=== PATIENT | male | born 1950 | race Caucasian/White ===

== ENCOUNTER → 2017-02-07 | Outpatient (CLI) | payer OTHER ==
[~2017-02-07] MED LIST: IOPAMIDOL (ISOVUE-300) 100 ML BTL IV ONE
== END ==
LOC: FIMAGING 07:40
PROVIDERS: ATTEND Family Medicine
DX: E27.9 Disorder of adrenal gland, unspecified (principal)
CPT/HCPCS: Q9967

== ENCOUNTER → 2018-05-12 | Outpatient (CLI) | payer OTHER | LOC: FIMAGING 08:16 | PROVIDERS: ATTEND Family Medicine | DX: D35.01 Benign neoplasm of right adrenal gland (principal) ==

== ENCOUNTER 2018-05-29 07:59 | Inpatient (IN) | payer OTHER ==
[2018-05-29] MEDS ORDERED: ETOMIDATE 40 MG/20 ML INJ IVP ONE (08:01)
[2018-05-29] MEDS ORDERED: SUCCINYLCHOLINE CHLORIDE 200 MG/10 ML VIAL IVP ONE (08:02)
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
[2018-05-29] MEDS ORDERED: PROPOFOL 200 MG/20 ML VIAL IVP ONE ×3 (08:11→08:27)
[2018-05-29 08:23] LABS: PLATELET COUNT 250 10^3/uL (150-400)
[2018-05-29] MEDS ORDERED: PROPOFOL/EMULSION 100 ML IV SCH (08:30)
[2018-05-29] MEDS ORDERED: ROCURONIUM 100 MG/10 ML VIAL ONE (08:37)
[2018-05-29] MEDS ORDERED: PROPOFOL 200 MG/20 ML VIAL ONE (08:38)
[2018-05-29] MEDS ORDERED: fentaNYL 100 MCG/2 ML INJ ONE (08:38)
[2018-05-29] MEDS ORDERED: PHENYLEPHRINE HCL 100 MCG/ML SYR ONE ×2 (08:39→09:41)
[2018-05-29] MEDS ORDERED: MANNITOL 20% 50 GM/250 ML BAG IV ONE (08:40)
[2018-05-29] MEDS ORDERED: levETIRAcetam 1000MG/NACL 100 ML IV ONE ×2 (08:41→16:15)
[2018-05-29] MEDS ORDERED: TRANEXAMIC ACID 1,000 MG/10 ML VIAL ONE (08:43)
[2018-05-29] MEDS ORDERED: ceFAZolin 2 GM/DEXTROSE 100 ML IV ONE ×2 (08:46→09:00)
[2018-05-29] MEDS ORDERED: TRANEXAMIC ACID 1,000 MG/10 ML VIAL IV ONE (08:46)
[2018-05-29] MEDS ORDERED: TRANEXAMIC ACID 1,000 MG in NS 100 ML IV ONE (08:48)
[2018-05-29] MEDS ORDERED: BACITRACIN ZINC 14.2 GM OINTTUBE TP ONE ×2 (08:51→11:47)
[2018-05-29] MEDS ORDERED: GENTAMICIN SULFATE 80 MG/2 ML VIAL ONE (08:51)
[2018-05-29] MEDS ORDERED: HYDROGEN PEROXIDE 236 ML BOTTLE TP ONE (08:51)
[2018-05-29] MEDS ORDERED: BUPIVACAINE 0.25% 30 ML SDV ONE (08:58)
[2018-05-29] MEDS ORDERED: EPINEPHrine 1 MG/ML INJ ONE (08:58)
[2018-05-29] MEDS ORDERED: PHENYLEPHRINE 10 MG/ML SDV ONE (09:41)
[2018-05-29 09:55] LABS: INR 1.15 (0.83-1.16); PROTIME(PATIENT) 14.9 SEC (12.0-15.0)
--- NOTE | 2018-05-29 10:11 | PDANEPAE ---
ANE History of Present Illness intracranial hemorrhage ANE Past Medical History Past Medical History: Pt's medical history is unknown ANE Review of Systems Review of Systems: ANE Labs/Vital Signs - Labs Result Diagrams: 05/29/18 09:33 05/29/18 08:00 - Vital Signs Heart Rate: 50 Respiratory Rate: 16 O2 Sat (%): 100 Weight: 78 kg ANE Physical Exam - Airway Neck exam: C-collar in place Mallampati Score: Unable to assesss ANE Anesthesia Plan Anesthesia Plan: general endotracheal anesthesia Lines/Monitors: arterial line, central line Urgent/Emergent Case: Kamilahs eval completed preop but documented later for safe timely pt care
[2018-05-29] MEDS ORDERED: ROCURONIUM 50 MG/5 ML VIAL ONE ×3 (10:14→11:51)
[2018-05-29] MEDS ORDERED: GLYCOPYRROLATE 0.2 MG/1 ML VIAL ONE (10:22)
[2018-05-29] MEDS ORDERED: ALBUMIN 5% 250 ML BOTTLE IV ONE (10:24)
[2018-05-29] MEDS ORDERED: POLYETHYLENE GLYCOL 3350 17 GM PKT PO PRN (12:11)
[2018-05-29] MEDS ORDERED: ACETAMINOPHEN 325 MG TAB PO PRN (12:11)
[2018-05-29] MEDS ORDERED: ONDANSETRON DISINTEGRATING 4 MG TAB PO PRN (12:11)
[2018-05-29] MEDS ORDERED: LACTULOSE 20 GM/30 ML UDCUP PO PRN (12:11)
[2018-05-29] MEDS ORDERED: MAGNESIUM HYDROXIDE 30 ML UDCUP PO PRN (12:11)
[2018-05-29] MEDS ORDERED: NALOXONE HCL 0.4 MG/ML INJ IVP PRN (12:50)
--- NOTE | 2018-05-29 12:50 | POSTANESTH ---
Post Anesthetic Evaluation Cardiovascular Status: Normal, Stable Respiratory Status: Other, See Comment (STABLE ON VENT) Level of Consciousness/Mental Status: Other, See Comment (SEDATED WITH PROPOFOL) Pain Control: Adequate, Prn Tx Ordered Nausea/Vomiting Control: Adequate, Prn Tx Ordered Complications Possibly Related to Anesthesia: None Noted
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
[2018-05-29] MEDS ORDERED: DOPamine/DEXTROSE 400 MG/250 ML BAG IV ONE (13:27)
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
[2018-05-29] MEDS ORDERED: NOREPINEPHRINE BITARTRATE 4 MG in D5W 500 ML IV SCH (13:30)
[2018-05-29] MEDS ORDERED: NS 1,000 ML IV ONE (13:43)
[2018-05-29] MEDS: niCARdipine/NACL 200 ML IV PRN (14:34)
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
[2018-05-29] MEDS: fentaNYL/NACL 100 ML IV SCH (15:43)
[2018-05-29] MEDS: MIDAZOLAM HCL 50 MG in NS 50 ML IV SCH (16:19)
[2018-05-29] MEDS ORDERED: IOPAMIDOL (ISOVUE 370) 100 ML BTL IV ONE (16:51)
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
[2018-05-29] MEDS ORDERED: levETIRAcetam 750 MG in NS 100 ML IV SCH (21:00)
[2018-05-29] MEDS: FAMOTIDINE 20 MG/NACL 50 ML IV SCH (21:07)
[2018-05-29] MEDS: levETIRAcetam 1000MG/NACL 100 ML IV SCH (21:07)
[2018-05-29] MEDS: SENNOSIDES/DOCUSATE SODIUM TAB PO SCH (22:00)
[2018-05-29] MEDS: CHLORHEXIDINE GLUCONATE 15 ML UDL PO SCH (22:00)
[2018-05-30] MEDS: ACETAMINOPHEN 650 MG SUPP PR PRN ×2 (01:42→14:32)
[2018-05-30 04:23] LABS: PLATELET COUNT 163 10^3/uL (150-400)
[2018-05-30] MEDS: MIDAZOLAM HCL 50 MG in NS 50 ML IV SCH (07:30)
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
[2018-05-30] MEDS: levETIRAcetam 1000MG/NACL 100 ML IV SCH ×2 (08:53→21:03)
[2018-05-30] MEDS: CHLORHEXIDINE GLUCONATE 15 ML UDL PO SCH ×2 (08:53→21:05)
[2018-05-30] MEDS: FAMOTIDINE 20 MG/NACL 50 ML IV SCH ×2 (08:54→20:07)
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
[2018-05-30] MEDS: SENNOSIDES/DOCUSATE SODIUM TAB PO SCH ×2 (09:31→21:05)
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
[2018-05-30] MEDS: niCARdipine/NACL 200 ML IV PRN ×2 (10:25→14:32)
[2018-05-30] MEDS: NS W/ 20 KCl/L 1,000 ML IV SCH (11:30)
[2018-05-30] MEDS ORDERED: LIDOCAINE 2% JELLY 5 ML TUBE TP ONE (14:40)
[2018-05-30] MEDS ORDERED: LIDOCAINE 1% 300 MG/30 ML SDV MISC ONE (14:40)
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
[2018-05-30] MEDS ORDERED: LIDOCAINE 2% JELLY 5 ML TUBE ONE (14:50)
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
--- NOTE | 2018-05-30 15:28 | GPN ---
[f rep st] PROCEDURE NOTE PROCEDURE: Fiberoptic bronchoscopy. INDICATION: Purulent secretions. ANESTHESIA: He is currently sedated on mechanical ventilation. He received 1% lidocaine topically. PROCEDURES PERFORMED IN THE INTENSIVE CARE UNIT: Continuous pulse ox, EKG and blood pressure monitor ing. Please note, the patient is on mechanical ventilation which is by definition a closed system an d poses no risk to airborne pathogens. DESCRIPTION OF PROCEDURE: The bronchoscope was entered through a #8 endotracheal tube. Distal trach ea and mandeep were visualized, showed no endobronchial lesion, normal-appearing mucosa. Bronchoscope in the right lung: Right upper lobe, right middle lobe, and right lower lobe including subsegments were subsequently visualized and showed no endobronchial lesions and normal-appearing muc conner. Bronchoscope in the left lung: Left upper lobe was visualized, showed no endobronchial lesion, brandon l-appearing mucosa. Bronchoscope in the left lower lobe: There I found copious amounts of thin reddish to tannish colore d secretions that were therapeutically aspirated. Bronchoalveolar lavage taken from the left lower l obe. This was sent for C and S, AFB, and fungal cultures. Patient tolerated the procedure well. Th ere were no apparent complications. /[id number]/MODL
[2018-05-30] MEDS: ERTAPENEM 0.5 GM in NS 100 ML IV SCH (16:36)
--- NOTE | 2018-05-30 16:59 | CPEEG ---
[f rep st] ELECTROENCEPHALOGRAM DATE OF STUDY: 05/30/2018 This is an EEG performed for 20 minutes. The posterior dominant is 7 Hz. There were no epileptiform discharges or seizure activity noted. There was no focal slowing noted. IMPRESSION: Overall, EEG shows slight generalized slowing but no other abnormalities. There was no seizure activity or epileptiform discharges noted. /[id number]/MODL MTDD
[2018-05-30] MEDS: fentaNYL/NACL 100 ML IV SCH (21:34)
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
[2018-05-31] MEDS: niCARdipine/NACL 200 ML IV PRN ×3 (08:39→16:40)
[2018-05-31] MEDS: levETIRAcetam 1000MG/NACL 100 ML IV SCH ×2 (08:40→21:33)
[2018-05-31] MEDS: CHLORHEXIDINE GLUCONATE 15 ML UDL PO SCH ×2 (08:40→21:33)
[2018-05-31] MEDS: FAMOTIDINE 20 MG/NACL 50 ML IV SCH ×2 (08:40→21:33)
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
[2018-05-31] MEDS: ERTAPENEM 0.5 GM in NS 100 ML IV SCH (10:43)
[2018-05-31] MEDS: ERTAPENEM 1 GM in NS 100 ML IV SCH (10:44)
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
[2018-05-31] MEDS ORDERED: CHLORHEXIDINE GLUCONATE 15 ML UDL PO SCH (20:00)
[2018-05-31] MEDS ORDERED: FAMOTIDINE 20 MG/NACL 50 ML IV SCH (21:00)
[2018-06-01] MEDS: niCARdipine/NACL 200 ML IV PRN ×3 (01:53→09:09)
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
[2018-06-01] MEDS: levETIRAcetam 1000MG/NACL 100 ML IV SCH ×2 (08:21→20:46)
[2018-06-01] MEDS: ERTAPENEM 1 GM in NS 100 ML IV SCH (08:21)
[2018-06-01] MEDS: CHLORHEXIDINE GLUCONATE 15 ML UDL PO SCH ×2 (08:21→20:45)
[2018-06-01] MEDS: FAMOTIDINE 20 MG/NACL 50 ML IV SCH ×2 (08:21→20:47)
[2018-06-01] MEDS: fentaNYL/NACL 100 ML IV SCH (09:08)
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
[2018-06-01] MEDS: PETROLAT,WHT/MIN OIL/SOD CHL 3.5 GM OPHT.OINT EACHEYE SCH ×2 (11:54→20:47)
[2018-06-01] MEDS: ALBUTEROL 60 PUFFS/8 GM MDI IH SCH ×5 (11:57→23:51)
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
[2018-06-01] MEDS ORDERED: DEXMEDETOMIDINE HCL 400 MCG in NS 100 ML IV SCH (13:00)
[2018-06-01] MEDS ORDERED: DEXMEDETOMIDINE IN 0.9 % NACL 50 ML IV SCH (13:00)
--- NOTE | 2018-06-01 15:27 | ASMTCMCOM ---
CM Note CM Note Notes: Patient continues on the vent, had a crani. "Family Meeting" See "Notes" Met with numerous family members. Patient has 4 sisters, 2 ex wives, 3 children and 2 grandchildren. 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 Family deciding on best person to be Medical Proxy. Date Signed: 06/01/2018 03:27 PM Electronically Signed By:Nuzhat Childress LCSW
[2018-06-01] MEDS: METOCLOPRAMIDE 10 MG/2 ML VIAL IVP SCH (18:49)
[2018-06-02] MEDS: METOCLOPRAMIDE 10 MG/2 ML VIAL IVP SCH ×4 (00:10→18:23)
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
[2018-06-02 04:56] LABS: PLATELET COUNT 169 10^3/uL (150-400)
[2018-06-02] MEDS: ALBUTEROL 60 PUFFS/8 GM MDI IH SCH ×6 (05:34→23:44)
[2018-06-02] MEDS: niCARdipine/NACL 200 ML IV PRN ×3 (08:31→14:26)
[2018-06-02] MEDS: NS W/ 20 KCl/L 1,000 ML IV SCH (08:34)
[2018-06-02] MEDS: levETIRAcetam 500 MG/5 ML UDCUP TUBE SCH ×2 (08:35→20:35)
[2018-06-02] MEDS: ENOXAPARIN 40 MG/0.4 ML SYR SC SCH (08:35)
[2018-06-02] MEDS: CHLORHEXIDINE GLUCONATE 15 ML UDL PO SCH ×2 (08:35→20:35)
[2018-06-02] MEDS: PETROLAT,WHT/MIN OIL/SOD CHL 3.5 GM OPHT.OINT EACHEYE SCH ×2 (08:35→20:35)
[2018-06-02] MEDS: FAMOTIDINE 20 MG TAB TUBE SCH ×2 (08:36→20:35)
[2018-06-02] MEDS: BISACODYL 10 MG SUPP PR PRN (08:36)
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
[2018-06-02] MEDS: ERTAPENEM 1 GM in NS 100 ML IV SCH (08:50)
[2018-06-02] MEDS: amLODIPine BESYLATE 5 MG TAB TUBE SCH (11:39)
[2018-06-02] MEDS: SENNOSIDES 17.6 MG/10 ML UDL TUBE SCH ×2 (11:39→20:40)
[2018-06-02] MEDS: hydrALAZINE 20 MG/ML VIAL IVP PRN (13:20)
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
--- NOTE | 2018-06-02 16:41 | TRAUMAPN ---
Trauma Progress Note Assessment/Plan: 67yo M s/p BCC c large SDH s/p crani c bone flap removal, ventric - Neuro: Ventric at 10, HARDEEP serosang. Appears to posture with pain, not moving spontaneously. - Pulm: Vent, settings minimal - CV: HDS, on cardene gtt for hypertension, will restart home CCB today - Abd: soft, ND, NT, OG, tube feeds at goal. Bowel regimen - Renal: gamble, UOP appropriate - Dispo: ICU, sedation has been off 14hrs, still min activity. Poor prognosis Subjective: Intubated, off sedation 14hrs Objective: Vital Signs Temp Pulse Resp BP Pulse Ox 38.2 C 76 18 138/53 H 99 06/02/18 16:00 06/02/18 16:00 06/02/18 16:00 06/02/18 16:00 06/02/18 16:00 Microbiology 05/30/18 15:10 Gram Stain - Final Lung Left Lower Lobe - Bronchial Washings Bronchial Washings Culture - Final Serratia Marcescens 05/30/18 15:10 Mycobacterial Smear (STEVENSON) - Final Lung Left Lower Lobe - Bronchial Washings Laboratory Results 06/02/18 11:51 06/02/18 04:45 06/01/18 06/02/18 06/03/18 05:59 05:59 05:59 Intake Total 3474.7 3078.2 Output Total 2633 1930 1559 Balance 841.7 1148.2 -1559 PT 14.9 SEC (12.0-15.0) 05/29/18 09:33 INR 1.15 (0.83-1.16) 05/29/18 09:33 - C-Spine Clearance Cervical Spine Cleared: No
--- NOTE | 2018-06-02 16:45 | ASMTCMCOM ---
CM Note CM Note Notes: CM met with children of patient. Family decided on son Galo "Brayan" to be medical proxy. Proxy form signed by Brayan and responsibilites form also given. Both daughter's names and contact information added to form as well. Pt still intubated s/p craniotomy. Dr. Falk had meeting with pt's family and explained prognosis. Still in "wait and see" pattern. CM to follow as needed. Date Signed: 06/02/2018 04:44 PM Electronically Signed By:Roya Zaragoza
[2018-06-02] MEDS ORDERED: LORazepam 2 MG/ML INJ ONE (17:38)
[2018-06-02] MEDS ORDERED: LORazepam 2 MG/ML INJ IVP ONE (18:11)
[2018-06-02] MEDS ORDERED: FOSPHENYTOIN SODIUM 500 MGPE/10 ML VIAL IVP ONE (18:16)
[2018-06-02] MEDS: NS 1,000 ML IV SCH (18:25)
[2018-06-02] MEDS ORDERED: FOSPHENYTOIN IV ONE (19:00)
[2018-06-02] MEDS ORDERED: NS IV ONE (19:00)
[2018-06-02] MEDS: ACETAMINOPHEN 650 MG/20.3 ML UDCUP TUBE PRN (19:25)
[2018-06-03] MEDS: METOCLOPRAMIDE 10 MG/2 ML VIAL IVP SCH ×3 (01:32→14:13)
[2018-06-03] MEDS: ACETAMINOPHEN 650 MG/20.3 ML UDCUP TUBE PRN ×2 (03:14→16:09)
[2018-06-03] MEDS: ALBUTEROL 60 PUFFS/8 GM MDI IH SCH ×5 (03:56→20:43)
[2018-06-03 05:03] LABS: PLATELET COUNT 202 10^3/uL (150-400)
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
[2018-06-03] MEDS: ERTAPENEM 1 GM in NS 100 ML IV SCH (09:02)
[2018-06-03] MEDS: ENOXAPARIN 40 MG/0.4 ML SYR SC SCH (09:04)
[2018-06-03] MEDS: CHLORHEXIDINE GLUCONATE 15 ML UDL PO SCH ×2 (09:05→21:04)
[2018-06-03] MEDS: FAMOTIDINE 20 MG TAB TUBE SCH ×2 (09:06→21:04)
[2018-06-03] MEDS: SENNOSIDES 17.6 MG/10 ML UDL TUBE SCH ×2 (09:06→21:04)
[2018-06-03] MEDS: PETROLAT,WHT/MIN OIL/SOD CHL 3.5 GM OPHT.OINT EACHEYE SCH ×2 (09:06→21:04)
[2018-06-03] MEDS: levETIRAcetam 500 MG/5 ML UDCUP TUBE SCH ×2 (09:06→21:04)
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
[2018-06-03] MEDS: amLODIPine BESYLATE 5 MG TAB TUBE SCH (11:55)
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
--- NOTE | 2018-06-03 15:30 | ASMTCMCOM ---
CM Note CM Note Notes: Family Meeting set up w/Dr. Falk for at 12:00. Date Signed: 06/03/2018 03:30 PM Electronically Signed By:Nuzhat Childress LCSW
[2018-06-03] MEDS: NS 1,000 ML IV SCH (21:08)
[2018-06-04] MEDS: ALBUTEROL 60 PUFFS/8 GM MDI IH SCH ×7 (00:32→23:13)
[2018-06-04] MEDS: ACETAMINOPHEN 650 MG/20.3 ML UDCUP TUBE PRN (05:48)
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
[2018-06-04] MEDS: CHLORHEXIDINE GLUCONATE 15 ML UDL PO SCH ×2 (08:47→21:31)
[2018-06-04] MEDS: PETROLAT,WHT/MIN OIL/SOD CHL 3.5 GM OPHT.OINT EACHEYE SCH ×2 (08:50→21:31)
[2018-06-04] MEDS: SENNOSIDES 17.6 MG/10 ML UDL TUBE SCH ×2 (08:51→21:31)
[2018-06-04] MEDS: amLODIPine BESYLATE 5 MG TAB TUBE SCH ×2 (08:52→14:49)
[2018-06-04] MEDS: ENOXAPARIN 40 MG/0.4 ML SYR SC SCH (08:55)
[2018-06-04] MEDS: ERTAPENEM 1 GM in NS 100 ML IV SCH (08:55)
[2018-06-04] MEDS: levETIRAcetam 500 MG/5 ML UDCUP TUBE SCH ×2 (08:56→19:41)
[2018-06-04] MEDS: FAMOTIDINE 20 MG TAB TUBE SCH ×2 (08:56→21:31)
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
[2018-06-04] MEDS: hydrALAZINE 20 MG/ML VIAL IVP PRN (11:40)
--- NOTE | 2018-06-04 12:44 | TRAUMAPN ---
Trauma Progress Note Assessment/Plan: no meaningful neurologic recovery- dr mcgregor discussed prognosis with family. no withdawal of care at present time. lungs clear heart rrr no me abd mildly distended. no new acute issue. family may wiah to withedra care soon Objective: Vital Signs Temp Pulse Resp BP Pulse Ox 38.1 C 58 L 17 124/44 H 100 06/04/18 12:00 06/04/18 12:00 06/04/18 12:00 06/04/18 12:00 06/04/18 12:00 Laboratory Results 06/03/18 04:50 06/03/18 04:50 06/03/18 06/04/18 06/05/18 05:59 05:59 05:59 Intake Total 3261 2674.8 Output Total 2739 1701 528 Balance 522 973.8 -528 PT 14.9 SEC (12.0-15.0) 05/29/18 09:33 INR 1.15 (0.83-1.16) 05/29/18 09:33 - C-Spine Clearance Cervical Spine Cleared: No
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
--- NOTE | 2018-06-04 16:04 | ASMTCMCOM ---
CM Note CM Note Notes: A family meeting was held today (please see Jordon Pepe's note) with Dr. Falk and Dr. Massey reviewing patient's current medical condition and prognosis. The family has chosen to give the patient more time until next Friday or Friday before making a decision about continuing medical care for the intermediate manager or moving to comfort measures. CM will follow. Date Signed: 06/04/2018 04:03 PM Electronically Signed By:Jennifer Mendoza LCSW
[2018-06-04] MEDS: NS 1,000 ML IV SCH (17:31)
[2018-06-04] MEDS ORDERED: DIAZEPAM 5 MG/ML 1 ML SYR IVP ONE (18:45)
[2018-06-04] MEDS ORDERED: DIAZEPAM 10 MG/2 ML SYR IVP ONE (18:45)
[2018-06-04] MEDS: PHENYTOIN 100 MG/4 ML UDL TUBE SCH (19:41)
[2018-06-05] MEDS: PHENYTOIN 100 MG/4 ML UDL TUBE SCH ×4 (00:16→21:04)
[2018-06-05] MEDS: ACETAMINOPHEN 650 MG/20.3 ML UDCUP TUBE PRN (03:28)
[2018-06-05] MEDS: ALBUTEROL 60 PUFFS/8 GM MDI IH SCH ×6 (05:02→23:31)
[2018-06-05 05:20] LABS: PLATELET COUNT 264 10^3/uL (150-400)
[2018-06-05] MEDS: PETROLAT,WHT/MIN OIL/SOD CHL 3.5 GM OPHT.OINT EACHEYE SCH ×2 (07:23→20:12)
[2018-06-05] MEDS: CHLORHEXIDINE GLUCONATE 15 ML UDL PO SCH ×2 (07:23→19:52)
[2018-06-05] MEDS: NS 1,000 ML IV SCH ×2 (07:52→20:12)
[2018-06-05] MEDS: ERTAPENEM 1 GM in NS 100 ML IV SCH (09:00)
[2018-06-05] MEDS: FAMOTIDINE 20 MG TAB TUBE SCH ×2 (09:01→20:12)
[2018-06-05] MEDS: ENOXAPARIN 40 MG/0.4 ML SYR SC SCH (09:01)
[2018-06-05] MEDS: levETIRAcetam 500 MG/5 ML UDCUP TUBE SCH ×2 (09:05→20:11)
[2018-06-05] MEDS: SENNOSIDES 17.6 MG/10 ML UDL TUBE SCH ×2 (09:30→20:11)
[2018-06-05] MEDS: amLODIPine BESYLATE 5 MG TAB TUBE SCH (09:31)
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
[2018-06-05] MEDS: LORazepam 2 MG/ML INJ IVP PRN ×2 (10:09→12:39)
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
[2018-06-05] MEDS ORDERED: PHENYTOIN SODIUM 250 MG/5 ML VIAL IVP ONE (10:26)
--- NOTE | 2018-06-05 12:15 | ASMTCMCOM ---
CM Note CM Note Notes: Patient has had seizure activity overnight. Seizures are being managed by neurology. Patient's prognosis is poor.CM will follow. Date Signed: 06/05/2018 12:14 PM Electronically Signed By:Jennifer Mendoza LCSW
--- NOTE | 2018-06-05 12:18 | NEUROPROG ---
Assessment: Call form Dr. Falk received today. Patient continues to have brief episodes of 10-20 sec facial twitching a posturing. On levetiracetam 1500mg BID. Phenytoin 100mg TID added yesterday. Discussed that standard of care would be transfer for continuous EEG monitoring in comatose patient with TBI and suspected seizures. Dr. Falk indicated he would discuss with family today how they would like to proceed. I offered to visit with family/patient - they are in a "wait and see" mode at this point, so Dr. Falk indicated he would communicate with family and recall PRN. Objective: Vital Signs Temp Pulse Resp BP Pulse Ox 36.3 C 53 L 17 128/63 H 100 06/05/18 08:00 06/05/18 11:00 06/05/18 11:00 06/05/18 11:00 06/05/18 11:00 Laboratory Results 06/05/18 05:00 06/05/18 05:00 06/04/18 06/05/18 06/06/18 05:59 05:59 05:59 Intake Total 2674.8 2661 Output Total 1701 2168 431 Balance 973.8 493 -431 PT 14.9 SEC (12.0-15.0) 05/29/18 09:33 INR 1.15 (0.83-1.16) 05/29/18 09:33 Allergies/Adverse Reactions: No Known Allergies Allergy (Verified 05/29/18 14:09)
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
[2018-06-05] MEDS: MIDAZOLAM HCL 50 MG in NS 50 ML IV SCH (18:45)
[2018-06-06] MEDS: ALBUTEROL 60 PUFFS/8 GM MDI IH SCH ×6 (04:15→23:35)
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
[2018-06-06] MEDS: hydrALAZINE 20 MG/ML VIAL IVP PRN (08:35)
[2018-06-06] MEDS: CHLORHEXIDINE GLUCONATE 15 ML UDL PO SCH ×2 (08:36→20:24)
[2018-06-06] MEDS: levETIRAcetam 500 MG/5 ML UDCUP TUBE SCH ×2 (08:36→20:24)
[2018-06-06] MEDS: ENOXAPARIN 40 MG/0.4 ML SYR SC SCH (08:36)
[2018-06-06] MEDS: FAMOTIDINE 20 MG TAB TUBE SCH ×2 (08:37→20:24)
[2018-06-06] MEDS: PETROLAT,WHT/MIN OIL/SOD CHL 3.5 GM OPHT.OINT EACHEYE SCH ×2 (08:37→20:26)
[2018-06-06] MEDS: amLODIPine BESYLATE 5 MG TAB TUBE SCH (08:37)
[2018-06-06] MEDS: ERTAPENEM 1 GM in NS 100 ML IV SCH (08:37)
[2018-06-06] MEDS: SENNOSIDES 17.6 MG/10 ML UDL TUBE SCH ×2 (08:38→20:24)
[2018-06-06] MEDS: PHENYTOIN 100 MG/4 ML UDL TUBE SCH ×3 (09:19→20:24)
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
[2018-06-06] MEDS ORDERED: PHENYTOIN SODIUM 250 MG/5 ML VIAL IVP ONE (11:46)
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
[2018-06-06] MEDS: BACITRACIN OINTMENT 1 PACKET TP PRN (17:27)
[2018-06-06] MEDS: NS 1,000 ML IV SCH (18:38)
[2018-06-07] MEDS: ALBUTEROL 60 PUFFS/8 GM MDI IH SCH ×5 (05:13→19:32)
[2018-06-07 05:32] LABS: PLATELET COUNT 341 10^3/uL (150-400)
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
[2018-06-07] MEDS: hydrALAZINE 20 MG/ML VIAL IVP PRN (07:52)
[2018-06-07] MEDS: BISACODYL 10 MG SUPP PR PRN (07:52)
--- NOTE | 2018-06-07 08:42 | TRAUMAPN ---
Trauma Progress Note Assessment/Plan: 67yo M s/p BCC c large SDH s/p crani c bone flap removal, ventric - Neuro: Seizure activity - poor prognosis. - Pulm: Vent, settings minimal. - Abd: soft, ND, NT, OG, tube feeds at goal. Bowel regimen - Renal: gamble, UOP appropriate - Dispo: ICU, Poor prognosis Son power of district attorney, family meeting later today or Wed ICU rounds S: No changes overnight Objective: Vital Signs Temp Pulse Resp BP Pulse Ox 36.7 C 60 14 154/57 H 100 06/07/18 07:58 06/07/18 07:58 06/07/18 07:58 06/07/18 07:58 06/07/18 07:58 Laboratory Results 06/07/18 05:00 06/07/18 05:00 06/06/18 06/07/18 06/08/18 05:59 05:59 05:59 Intake Total 318 2599 Output Total 2013 1947 25 Balance 1167 651 -25 PT 14.9 SEC (12.0-15.0) 05/29/18 09:33 INR 1.15 (0.83-1.16) 05/29/18 09:33 - C-Spine Clearance Cervical Spine Cleared: No Physical Exam - Physical Exam General Appearance: WD/WN, no apparent distress Respiratory: lungs clear Cardiac/Chest: regular rate, rhythm Abdomen: non-tender, soft Skin: normal color, warm/dry Neuro/Psych: other (does not follow commands)
[2018-06-07] MEDS: ERTAPENEM 1 GM in NS 100 ML IV SCH (08:49)
[2018-06-07] MEDS: ENOXAPARIN 40 MG/0.4 ML SYR SC SCH (08:49)
[2018-06-07] MEDS: BACITRACIN OINTMENT 1 PACKET TP PRN (08:50)
[2018-06-07] MEDS: FAMOTIDINE 20 MG TAB TUBE SCH ×2 (08:50→21:37)
[2018-06-07] MEDS: levETIRAcetam 500 MG/5 ML UDCUP TUBE SCH ×2 (08:50→21:37)
[2018-06-07] MEDS: SENNOSIDES 17.6 MG/10 ML UDL TUBE SCH ×2 (08:50→21:38)
[2018-06-07] MEDS: amLODIPine BESYLATE 5 MG TAB TUBE SCH (08:50)
[2018-06-07] MEDS: CHLORHEXIDINE GLUCONATE 15 ML UDL PO SCH ×2 (08:50→21:37)
[2018-06-07] MEDS: PETROLAT,WHT/MIN OIL/SOD CHL 3.5 GM OPHT.OINT EACHEYE SCH ×2 (08:50→21:37)
[2018-06-07] MEDS: PHENYTOIN 100 MG/4 ML UDL TUBE SCH ×3 (09:16→21:53)
[2018-06-07] MEDS: MIDAZOLAM HCL 50 MG in NS 50 ML IV SCH (12:37)
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
--- NOTE | 2018-06-07 17:22 | ASMTCMCOM ---
CM Note CM Note Notes: Dr Falk has talked with family and they would like to meet with [facility] tomorrow. Referral sent to [facility]. Date Signed: 06/07/2018 05:22 PM Electronically Signed By:Nuzhat Childress LCSW
[2018-06-08] MEDS: ALBUTEROL 60 PUFFS/8 GM MDI IH SCH ×6 (00:05→21:09)
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
[2018-06-08] MEDS: CHLORHEXIDINE GLUCONATE 15 ML UDL PO SCH (08:30)
[2018-06-08] MEDS: PETROLAT,WHT/MIN OIL/SOD CHL 3.5 GM OPHT.OINT EACHEYE SCH (08:31)
[2018-06-08] MEDS: NS 1,000 ML IV SCH (08:32)
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
[2018-06-08] MEDS: SENNOSIDES 17.6 MG/10 ML UDL TUBE SCH (09:21)
[2018-06-08] MEDS: levETIRAcetam 500 MG/5 ML UDCUP TUBE SCH (09:21)
[2018-06-08] MEDS: ENOXAPARIN 40 MG/0.4 ML SYR SC SCH (09:21)
[2018-06-08] MEDS: PHENYTOIN 100 MG/4 ML UDL TUBE SCH ×2 (09:22→16:21)
[2018-06-08] MEDS: ERTAPENEM 1 GM in NS 100 ML IV SCH (09:22)
[2018-06-08] MEDS: FAMOTIDINE 20 MG TAB TUBE SCH (09:22)
[2018-06-08] MEDS: amLODIPine BESYLATE 5 MG TAB TUBE SCH (09:22)
[2018-06-08 14:02] VITALS: BP 137/62
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
[2018-06-08] MEDS ORDERED: GLYCOPYRROLATE 0.2 MG/1 ML VIAL IVP/IM PRN (15:39)
[2018-06-08] MEDS ORDERED: LORazepam 2 MG/ML INJ IVP PRN (15:39)
--- NOTE | 2018-06-08 15:42 | ASMTDCNOTE ---
Case Management Discharge Discharge Order Complete? Answers: Yes Patient to Obtain Answers: Other Notes: [facility] Medications Transportation Arranged Answers: Other Notes: [place] [facility] ambulance set up b y [facility] will Pick (Date 06/08/2018 05:00 PM & Time) Faxed Final Orders Answers: Yes Notes: [facility] Family Notified Answers: Yes Notes: Family met with [facility] Discharge Comments Notes: Family would like patient to go to [facility]. [facility] has assessed pt and feels that he is appropriate for in-pt care. [facility] has lined up ambulance transport at 5:00. Date Signed: 06/08/2018 03:41 PM Electronically Signed By:Nuzhat Childress LCSW
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
== END 2018-06-08 17:04 | disposition expired | DRG 25 ==
LOC: FSGY 09:18 → EDBD 09:18 → MERGE 12:12 → F2N 12:12
PROVIDERS: ADMIT Neurological Surgery; ATTEND Neurological Surgery
PROC: 0BH18EZ Insertion of Endotracheal Airway into Trachea, Via Natural or Artificial Opening Endoscopic (ICD-10-PCS; 2018-05-29)
PROC: 5A1955Z Respiratory Ventilation, Greater than 96 Consecutive Hours (ICD-10-PCS; 2018-05-29)
PROC: 009600Z Drainage of Cerebral Ventricle with Drainage Device, Open Approach (ICD-10-PCS; principal; 2018-05-29 08:00)
PROC: 009 Central Nervous System and Cranial Nerves, Drainage (ICD-10-PCS; principal; 2018-05-29 08:00)
PROC: 0B9B8ZX Drainage of Left Lower Lobe Bronchus, Via Natural or Artificial Opening Endoscopic, Diagnostic (ICD-10-PCS; 2018-05-30)
DX: S02.0XXA Fracture of vault of skull, initial encounter for closed fracture; S02.413A LeFort III fracture, initial encounter for closed fracture; S02.19XA Other fracture of base of skull, initial encounter for closed fracture; S02.2XXA Fracture of nasal bones, initial encounter for closed fracture; S02.81XA Fracture of other specified skull and facial bones, right side, initial encounter for closed fracture; S02.40EA Zygomatic fracture, right side, initial encounter for closed fracture; V18.4XXA Pedal cycle driver injured in noncollision transport accident in traffic accident, initial encounter; Y93.55 Activity, bike riding; Y92.413 State road as the place of occurrence of the external cause; Y99.8 Other external cause status; I63.8 Other cerebral infarction; R56.1 Post traumatic seizures; J69.0 Pneumonitis due to inhalation of food and vomit; B96.89 Other specified bacterial agents as the cause of diseases classified elsewhere; I10 Essential (primary) hypertension
CPT/HCPCS: 82435-PO; 82565-PO; 82947-PO; 84132-PO; 84295-PO; 84520-PO; 85014-PO; 96374; C1713; C1729; J0171; J0360; J0690; J1165; J1265; J1335; J1580; J1650; J1953; J2060; J2250; J2270; J2370; J2704; J2765; J3010; J3360; P9041; Q2009; Q9967